=== PATIENT | male | born 1995 ===

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

== ENCOUNTER 2017-03-15 09:08 | Day surgery (SDC) | payer BC, OTHER ==
--- NOTE | 2017-03-08 20:44 | HP ---
PREOPERATIVE HISTORY AND PHYSICAL: DATE OF SURGERY: 03/15/17 ATTENDING SURGEON: Jerri Guzman MD * (DICTATED BY RIAN RIVERA) PROCEDURE: Left shoulder arthroscopic labral repair. CHIEF COMPLAINT: Left shoulder pain and instability. 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 He had a prior right shoulder arthroscopic labral repair with Dr. Guzman this past December. He has failed conservative measures of his left shoulder and has therefore, agreed to undergo a left shoulder arthroscopic labral repair with Dr. Guzman on 03/15/17. PAST MEDICAL HISTORY: No current problems. PAST SURGICAL HISTORY: [place] tooth surgery and right shoulder arthroscopic labral repair. MEDICATIONS: No active medications. ALLERGIES: ZITHROMAX. FAMILY HISTORY: Denies pertinent family history. SOCIAL HISTORY: He lives with his roommates. He denies tobacco use. He reports occasional alcohol consumption. He exercises regularly. He is left hand dominant. REVIEW OF SYSTEMS: A 14-point review of systems was reviewed with the patient. Positive for the current complaint, otherwise negative. Denies fever, chills. Denies chest pain or shortness of breath. Denies history of history of DVT or PE. Denies history of bleeding disorder. PHYSICAL EXAMINATION GENERAL: A 21-year-old well-developed, well-nourished male in no acute distress. Alert and oriented x3 with appropriate mood and affect. VITAL SIGNS: Height 76, weight 225. Pulse 82, blood pressure 120/78, respiratory rate 16, temperature 98.4. BMI is 27.4. HEENT: Normocephalic, atraumatic. PERRLA. NECK: Supple. Throat clear. PULMONARY: Lungs clear to auscultation bilaterally. No wheezing, rhonchi, or rales. CARDIO: Regular rate and rhythm. S1 and S2. No murmurs, gallops or rubs. No edema. ABDOMEN: Positive bowel sounds. Soft, nontender. NEURO: Alert and oriented x3. Cranial nerves grossly intact. Sensation is intact to light touch. MUSCULOSKELETAL: Left upper extremity: Skin is intact. No warmth or erythema. Nontender to palpation. Forward flexion and abduction 170. External rotation to 75, internal rotation to T10. +5/5 strength to rotator cuff testing. Positive Neer, Speed, Tomas-Derek, and [place]. +1 to 2 anterior shift. +2 radial pulses. Sensation intact to light touch distally. DIAGNOSTIC STUDIES: MR arthrogram of the left shoulder revealed a labral tear. IMPRESSION: Left shoulder labral tear. PLAN: The patient is scheduled to undergo a left shoulder arthroscopic labral repair with Dr. Guzman on 03/15/17. He will return to the office 10 to 14 days postop for followup and suture removal. Percocet was sent to his pharmacy for postop pain management and Keflex for antibiotic prophylaxis. RIAN RIVERA [id number]/[facility] #: [id number] [facility]
[~2017-03-15 09:08] MED LIST changes: -Dexamethasone IV* 4 MG/ML 1 ML (4 MG) IV SLOW PU ONE; -Famotidine IV* 10 MG/ML 2 ML (20 mg) IV ONE
[2017-03-15] MEDS ORDERED: ceFAZolin 2 GM PREMIX (*) 2 GM/50 ML BAG IVPB ONE (09:16)
[2017-03-15] MEDS ORDERED: fentaNYL* 50 MCG/ML 2 ML VIAL (100 MCG VIAL) ONE ×2 (09:29→11:44)
[2017-03-15] MEDS ORDERED: Midazolam* 1 MG/ML 2 ML VIAL (2 MG) ONE (09:29)
[2017-03-15] MEDS ORDERED: Bupivacaine 0.5% SDV PF* 30 ML VIAL ONE (10:18)
[2017-03-15] MEDS ORDERED: Bupivacaine 0.25% SDV* 30 ML ONE (10:29)
[2017-03-15] MEDS ORDERED: ROPIVACAINE 5 MG/ML 30 ML BTL (0.5%) ONE (10:58)
[2017-03-15] MEDS ORDERED: Rocuronium* 10 MG/ML VIAL ONE (11:48)
[2017-03-15] MEDS ORDERED: Ondansetron INJ* 2 MG/ML VIAL ONE (12:07)
[2017-03-15] MEDS ORDERED: Propofol* 10 MG/ML 20 ML BTL IV PUSH ONE (12:07)
[2017-03-15] MEDS ORDERED: Succinylcholine* 20 MG/ML 10 ML VIAL ONE (12:07)
[2017-03-15] MEDS ORDERED: Lidocaine 2% PF * 5 ML VIAL ONE (12:07)
[2017-03-15] MEDS ORDERED: Dexamethasone IV* 4 MG/ML 1 ML (4 MG) ONE (12:07)
[2017-03-15] MEDS ORDERED: EPHEDrine (Pressors)* 50 MG/ML VIAL ONE (13:09)
[2017-03-15 15:23] VITALS: BP 116/75
--- NOTE | 2017-03-18 23:14 | OP ---
CC: Dr. Moscoso OPERATIVE REPORT: DATE OF OPERATION: 03/15/17 DATE OF : [birth year] SURGEON: Jerri Guzman MD ASSISTANTS: RIAN De La Fuente and RIAN Mcadams ANESTHESIOLOGIST: Dr. Ohara. ANESTHESIA: General with an interscalene block. PRE-OP DIAGNOSIS: Left shoulder instability. POST-OP DIAGNOSIS: Left shoulder instability with possible tendonitis and SLAP tear. OPERATIVE PROCEDURE: 1. Left shoulder arthroscopy with anterior labral repair. 2. Open biceps tenodesis. COMPLICATIONS: None. ESTIMATED BLOOD LOSS: Minimal. INSTRUMENT USED: Three 2.9 Bioraptors and one 2.8 mm Q-Fix. 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 He has failed conservative management. He has been previously treated for right shoulder instability too, which was an anterior and posterior tear, was treated about 3 months ago, which is recovering well from. Risks and benefits of surgery were discussed in length and included but are not limited to bleeding; infection; damage to nerves vessels, surrounding structures; wound nonhealing; persistent pain; need for further surgery; scarring; stiffness; incomplete relief of symptoms and risks of anesthesia. He and his family have elected to proceed with surgery. DESCRIPTION OF PROCEDURE: The patient was greeted in the preoperative area by the attending surgeon. Correct extremity was marked and consent was confirmed. The patient then underwent an interscalene nerve block in the preanesthesia area after which he was brought to the operating suite where he was placed in supine position on the operating room table. He then underwent general anesthesia with endotracheal intubation after which he was placed in the right lateral decubitus position with all bony prominences padded. He was secured with a pegboard. The left arm was draped unsterile with 10 pounds of traction and the lateral mona was used to help with positioning of the shoulder. The left shoulder was prepped and draped in the usual sterile fashion beginning with chlorhexidine soap, scrub, and alcohol wipe, and a final prep with ChloraPrep. After appropriate surgical pause indicating side, site, procedure, and administration of antibiotics, the posterolateral portal was made sharply with an 11 blade. The scope was introduced in the joint and the joint was examined. There was synovitis and inflammation, but no significant partial tearing of the rotator cuff, just inflammation. The lower anterior portal was made with first an 18-gauge needle for localization and then carefully dilated up, 8-mm cannula was placed just above the subscap. A second 5-mm portal was placed superiorly along the interval for suture shuttling and suture management. The anterior labrum was found to be fully torn from the 2 o'clock to the 6 o'clock position with no evidence of healing, this was displaced. There was a small amount of chondral changes in the glenoids with grade 2 changes. The posterior labrum was found to have mild fraying. The subscap was intact, the biceps was just taken through motion and found to have synovitis as well as inflammation at the biceps anchor and found to have evidence of a SLAP tear with positive peel-back sign. The biceps was then tenotomized for later tenodesis. The elevators were then used to gently remove what remaining labrum was attached to the bone and to allow for a good glenoid separation which was done using a red ball rasp and a shaver. The capsule was also rasped using a double edged rasp. Once the capsule and glenoid surface were thoroughly mobilized and prepared, the 3 anchors were placed beginning first at the 5:30 position. It was drilled and then the 2.9 raptor was placed with excellent purchase. Suture was then passed through a horizontal mattress configuration and then tied down using arthroscopic knot tying. This allowed for inferosuperior capsular shift as well as orthodoxy of the anteroinferior labrum. A second anchor was placed at around the 4:30 position and again passed in a horizontal mattress configuration and the last one was placed around the 3 o'clock position and passed in a simple fashion and again tied down with arthroscopic knot tying technique. This allowed for orthodoxy, removal of the drive through sign, as well as allowed the humeral head to be seated appropriately in the center of the glenoid. At this point, attention was directed to the posterior labrum to see if there needed to be a repair posteriorly. The scope was repositioned to the more superior cannula and a probe was brought through the posterior portal. The posterior labrum was probed and found to be intact. There was mild amount of fraying but no obvious tearing. Decision was made to not repair this. The hill sachs was found to be small. The remainder of the humeral head had grade 0 to 1 changes. At this point, the joint was thoroughly lavaged and attention was directed to the biceps. The bed was air-planed to the left side and the anterior aspect of the shoulder was prepped in the usual fashion. A 15-blade was used to make an incision in line with the biceps accompanying the inferior two thirds of the pec. The soft tissues were carefully dissected to expose the pec muscle. Remainder of the dissection was done bluntly at this point, bicipital groove was identified. Jorge elevators were used to superiorly collect the pec. The biceps groove was identified and a small kaitlyn in the fascia was done using the electrocautery device to allow sutures to pass through the wound and was found to have synovitis and tendinopathy as well. The bicipital groove was prepared in a usual fashion with electrocautery device as well as the red ball rasp and the osteotome to allow for bony bleeding bed. The Q-Fix drill guide was then used to drill unicortically and the Q-Fix was deployed with excellent purchase. The sutures were then passed through the tendon, approximately 1 cm proximal to the musculotendinous junction in a Philippe Agustin-type configuration. The excess biceps was then excised and the biceps was shuttled back into the wound and then tied down and secured. The wounds were copiously irrigated with sterile saline. The portals were closed with sterile nylon. The anterior portal was closed with 2-0 Vicryl and 3-0 Monocryl. Sterile dressings were applied. The anterior horn was injected with 0.25% Marcaine plain and sterile dressings. Cryo/cuff and UltraSling were applied. He was awoken from anesthesia and transferred to PACU in stable condition. POSTOPERATIVE PLAN: He will be nonweightbearing. He will be in a sling for a total of about 4 to 5 weeks and start physical therapy in 4 weeks. He will be discharged with pain medications and antibiotics. DVT prophylaxis was considered but deferred due to no previous personal or family history. I will see the patient back in 10 to 14 days. [id number]/[facility] #: [id number] MTDD
== END 2017-03-15 15:46 | disposition home or self-care (01) ==
LOC: OR 09:08
PROVIDERS: ATTEND Orthopaedic Surgery
DX: M25.312 Other instability, left shoulder (principal); M75.22 Bicipital tendinitis, left shoulder
CPT/HCPCS: C1776; J0330; J0690; J1100; J2250; J2405; J2704; J2795; J3010